=== PATIENT | female | born 1995 | race Caucasian/White ===

== ENCOUNTER → 2016-09-14 | Outpatient (CLI) | payer OTHER ==
--- NOTE | 2016-09-14 15:57 | DI ---
Indication: ITS.REASON: R51 HEADACHE PROCEDURE: MRI BRAIN W/O CONTRAST: Encounter: Initial Comparisons: None. Technique: Multiplanar, multisequence, MR imaging of the head without contrast was acquired. FINDINGS: The ventricles are of normal size, shape, and contour for the patient's age. The brain stem, cerebellum, and cerebral hemispheres have a normal morphologic appearance as well as MR signal intensity on all pulse sequences. There are no areas of restricted diffusion on diffusion weighted imaging to suggest an acute infarct. There is no evidence of an intracranial mass lesion, intracranial hemorrhage, or hydrocephalus. The visualized portions of the orbits, calvarium, and skull base demonstrate no significant abnormality. Mild to moderate mucosal thickening in the maxillary sinuses and anterior ethmoids. No clear soft tissue abnormality or mass in the area of clinical concern in the frontal region. IMPRESSION: Mild to moderate sinus disease, otherwise normal exam. .
== END ==
LOC: IMA 14:34
PROVIDERS: ATTEND Family Medicine
DX: J34.89 Other specified disorders of nose and nasal sinuses (principal); R51 Headache